=== PATIENT | male | born 1995 | race Caucasian/White ===

== ENCOUNTER 2018-07-30 03:02 | Emergency (ER) | payer SELFPAY ==
[~2018-07-30] VITALS: Ht 185.4 cm; Wt 77.0 kg
[2018-07-30 03:06] VITALS: BP 135/95
[2018-07-30] MEDS ORDERED: ACETAMINOPHEN 500 MG TABLET ONE (03:24)
[2018-07-30] MEDS ORDERED: IBUPROFEN 800 MG TABLET ONE (03:24)
[2018-07-30] MEDS ORDERED: ACETAMINOPHEN 500 MG TABLET PO ONE (03:30)
[2018-07-30] MEDS ORDERED: IBUPROFEN 200 MG TABLET PO ONE (03:30)
== END 2018-07-30 03:47 | disposition home or self-care (01) ==
LOC: ED 03:42
DX: S43.085A Other dislocation of left shoulder joint, initial encounter (principal); X58.XXXA Exposure to other specified factors, initial encounter; Y93.89 Activity, other specified; Y92.89 Other specified places as the place of occurrence of the external cause; Y99.8 Other external cause status
CPT/HCPCS: 23650; 99284